=== PATIENT | male | born 1970 | race Native Hawaiian/Other Pacific Islander ===

== ENCOUNTER → 2017-06-19 | Outpatient (CLI) | payer BC ==
[~2017-06-19] MED LIST: AZITHROMYCIN 2250 MG PO; CHANTIX1 MG PO; CLONAZEPAM PO; DOXYCYCLINE 10100 M1 PO; FLEXERIL PO; HYDROCODON-ACE1 EAC7 PO; IBUPROFEN200 M2; LISINOPRIL10 MG PO; NORCO 5-325 TA1 EACH PO; PREDNISONE 20 M20 M1 PO; PREDNISONE 20 M20 MG PO; PRILOSEC; PROVENTIL HFA6.7 G1 INH; TESSALON200 MG PO; VENTOLIN17 GM INH; WELLBUTRIN SR150 MG PO
== END ==
LOC: M.RAD 08:50
DX: R05 Cough (principal)